=== PATIENT | male | born 1970 | race Caucasian/White ===

== ENCOUNTER 2017-10-11 20:18 | Emergency (ER) | payer BC ==
[~2017-10-11] VITALS: Ht 177.8 cm; Wt 93.0 kg
[2017-10-11 20:30] VITALS: BP_SYST 147
--- NOTE | 2017-10-11 20:30 | NUR ---
Patient to ER bed 04 to gown for evaluation. Side rails up.
--- NOTE | 2017-10-11 20:32 | NUR ---
Dr Carvalho at bedside examining patient
--- NOTE | 2017-10-11 20:35 | NUR ---
Pt brought by family, A&Ox4, pt c/o sudden L heel pain 05/29 denies trauma, difficulty walking, cap refill <3, afebrile, skin pink and warm.
[2017-10-11 22:22] VITALS: BP_SYST 147
--- NOTE | 2017-10-11 22:23 | NUR ---
Patient given written and verbal discharge instructions and verbalizes understanding. ER MD discussed with patient the results and treatment provided. Patient in stable condition. ID arm band removed. No prescriptions given. Patient educated on pain management and to follow up with PMD. Pain Scale 2/10 tolerable for pt Opportunity for questions provided and answered.
== END 2017-10-11 22:22 | disposition home or self-care (01) ==
LOC: SED 20:18
DX: M71.572 Other bursitis, not elsewhere classified, left ankle and foot (principal)
CPT/HCPCS: 99284